=== PATIENT | female | born 1975 | race Caucasian/White ===

== ENCOUNTER 2018-12-27 12:48 | Emergency (ER) | payer SELFPAY ==
--- NOTE | 2018-12-27 13:46 | RAD ---
LEFT HIP 2 VIEWS: HISTORY: Left hip pain. FINDINGS: Exam is somewhat less than optimal technically. No acute fracture or dislocation. IMPRESSION: Unremarkable left hip. No fracture or dislocation. POS: [facility]
--- NOTE | 2018-12-27 13:47 | RAD ---
FExam: Calcaneus 2 views HISTORY: Pain FINDINGS: No fracture. No cortical irregularity or periosteal reaction. Minimal osteophyte formation at the plantar aponeurosis insertion site. IMPRESSION: No fracture.
== END 2018-12-27 14:17 | disposition home or self-care (01) ==
LOC: ERS 12:48
DX: M25.552 Pain in left hip (principal); M79.672 Pain in left foot; F31.9 Bipolar disorder, unspecified; F20.9 Schizophrenia, unspecified